=== PATIENT | female | born 1960 | race Caucasian/White ===

== ENCOUNTER → 2020-01-14 | Outpatient (CLI) | payer BC ==
[~2020-01-14] MED LIST: AMARYL4 MG PO; AMBIEN 10MG10 MG PO; ASPIRIN 81M81 MG/TA2 PO; GLUCOPHAGE1000 MG PO; LEVEMIR FLEXPEN SC; NEURONTIN100 MG/CAP PO; OMEGA 31000 MG PO; PRINIVIL20 MG PO; TENORMIN 5050 MG/TAB PO; ZOCOR 20MG20 MG PO
== END ==
LOC: MC.RAD 09:14
DX: R92.0 Mammographic microcalcification found on diagnostic imaging of breast (principal)